=== PATIENT | female | born 1985 | race Caucasian/White ===

== ENCOUNTER 2018-09-26 06:48 | Day surgery (SDC) | payer MEDICAID ==
[~2018-09-26 06:48] MED LIST: Lactated Ringers 1,000 ML IV SCH; Lidocaine 1%/Sod Bicarbonate in NS 8.4% 1 ML Syringe IDERM PRN; Sodium Chloride 0.9% 10 ML Syringe FLUSH PRN
[2018-09-26] MEDS ORDERED: Rocuronium 50 MG/5 ML Vial ONE (07:19)
[2018-09-26] MEDS ORDERED: Ondansetron 4 MG/2 ML SDV ONE (07:19)
[2018-09-26] MEDS ORDERED: Propofol 200 MG/20 ML SDV ONE (07:19)
[2018-09-26] MEDS ORDERED: Lidocaine 1% 4 ML ONE (07:20)
[2018-09-26] MEDS ORDERED: fentaNYL 250 MCG/5 ML SDV ONE (07:20)
[2018-09-26] MEDS ORDERED: Ketorolac 30 MG/ML SDV ONE (07:20)
[2018-09-26] MEDS ORDERED: Midazolam 1 MG/ML 2 ML SDV ONE (07:20)
--- NOTE | 2018-09-26 07:34 | PCM.PREANE ---
Preanesthetic Assessment - Anesthesia/Transfusion/Family Hx Anesthesia History: Prior Anesthesia Without Reaction Family History of Anesthesia Reaction: No Transfusion History: No Prior Transfusion(s) - Review of Systems General: No Symptoms Pulmonary: No Symptoms Cardiovascular: Dyspnea on Exertion Gastrointestinal: No Symptoms Neurological: Seizure (age 11) Other: Reports: Depression - Physical Assessment NPO Status Date: 09/25/18 NPO Status Time: 00:00 Pulse: 83 O2 Sat by Pulse Oximetry: 98 Respiratory Rate: 17 Blood Pressure: 111/59 Temperature: 36.2 C Height: 1.57 m Weight: 81.2 kg ASA Class: 2 Mental Status: Alert & Oriented x3 Airway Class: Mallampati = 1 Dentition: Reports: [place](s), Broken Tooth/Teeth (top right) Thyro-Mental Finger Breadths: 3 Mouth Opening Finger Breadths: 3 ROM/Head Extension: Full Lungs: Clear to Auscultation, Normal Respiratory Effort Cardiovascular: Regular Rate, Regular Rhythm - Allergies Allergies/Adverse Reactions: Allergies Allergy/AdvReac Type Severity Reaction Status Date / Time erythromycin base Allergy Airway Verified 09/25/18 12:52 [From Pediazole] Tightness sulfisoxazole Allergy Airway Verified 09/25/18 12:52 [From Pediazole] Tightness ibuprofen [From Advil] AdvReac Dizziness Verified 09/26/18 07:40 - Blood Blood Available: Yes Product(s) Available: PRBC - Anesthesia Plan Pre-Op Medication Ordered: None - Acknowledgements Anesthesia Type Planned: General Anesthesia Pt an Appropriate Candidate for the Planned Anesthesia: Yes Alternatives and Risks of Anesthesia Discussed w Pt/Guardian: Yes Pt/Guardian Understands and Agrees with Anesthesia Plan: Yes PreAnesthesia Questionnaire HEENT History: Reports: Allergic Rhinitis, Impaired Vision, Sinusitis Cardiovascular History: Reports: None Respiratory History: Reports: Asthma, Bronchitis, Recurrent Genitourinary History: Reports: Other (See Below) Other Genitourinary History: std exposure FULL STACK DEVELOPER History: Reports: , Other (See Below) Other OB/BYN History: bacterial vaginosis, abnormal uterine bleeding, dyspareunia, ovarian cyst, pelvic pain, fibroid Musculoskeletal History: Reports: Other (See Below) Other Musculoskeletal History: right elbow epicondylitis Neurological History: Reports: Other (See Below) Other Neuro History: dizziness, arm neuropathy, seizure disorder Psychiatric History: Reports: Anxiety, Depression Endocrine/Metabolic History: Reports: None Hematologic History: Reports: None Immunologic History: Reports: None Oncologic (Cancer) History: Reports: None Dermatologic History: Reports: None - Past Surgical History Head Surgeries/Procedures: Reports: None Cardiovascular Surgical History: Reports: None Respiratory Surgical History: Reports: None GI Surgical History: Reports: Colonoscopy Endocrine Surgical History: Reports: None Neurological Surgical History: Reports: None Musculoskeletal Surgical History: Reports: None Oncologic Surgical History: Reports: None Dermatological Surgical History: Reports: None - SUBSTANCE USE Smoking Status *Q: Never Smoker Tobacco Use Within Last Twelve Months: No Second Hand Smoke Exposure: No Days Per Week of Alcohol Use: 1 Number of Drinks Per Day: 0 Total Drinks Per Week: 0 Recreational Drug Use History: No - HOME MEDS Home Medications: Home Meds FLUoxetine [PROzac] 60 mg PO DAILY 05/17/18 [History] Albuterol Sulfate [Proair Hfa] 1 - 2 puff INH Q4H PRN 09/25/18 [History] Biotin 2 mg PO DAILY 09/25/18 [History] Naproxen 500 mg PO Q4H PRN 09/25/18 [History] - CURRENT (IN HOUSE) MEDS Current Meds: Current Medications Lactated Ringer's (Ringers, Lactated) 1,000 mls @ 125 mls/hr IV ASDIRECTED MALINI Stop: 09/26/18 23:00 Lidocaine/Sodium Bicarbonate (Buffered Lidocaine 1% In Ns 8.4%) 0.25 ml IDERM ONETIME PRN PRN Reason: Prior to IV Start Stop: 09/26/18 18:00 Sodium Chloride (Saline Flush) 10 ml FLUSH ASDIRECTED PRN PRN Reason: Keep Vein Open Stop: 09/26/18 18:00 Discontinued Medications Fentanyl (Sublimaze) Confirm Administered Dose 250 mcg .ROUTE .STK-MED ONE Stop: 09/26/18 07:21 Lidocaine HCl (Xylocaine-Mpf 1%) Confirm Administered Dose 4 mls @ as directed .ROUTE .STK-MED ONE Stop: 09/26/18 07:21 Ketorolac Tromethamine (Toradol) Confirm Administered Dose 30 mg .ROUTE .STK- MED ONE Stop: 09/26/18 07:21 Midazolam HCl (Versed 1 Mg/Ml) Confirm Administered Dose 2 mg .ROUTE .STK-MED ONE Stop: 09/26/18 07:21 Ondansetron HCl (Zofran) Confirm Administered Dose 4 mg .ROUTE .STK-MED ONE Stop: 09/26/18 07:20 Propofol (Diprivan 20 Ml) Confirm Administered Dose 200 mg .ROUTE .STK-MED ONE Stop: 09/26/18 07:20 Rocuronium [place] (Zemuron) Confirm Administered Dose 50 mg .ROUTE .STK-MED ONE Stop: 09/26/18 07:20
[2018-09-26] MEDS ORDERED: Lidocaine 1% with EPINEPHrine 1:100,000 20 ML MDV ONE (07:36)
[2018-09-26] MEDS ORDERED: Bupivacaine 0.5% 30 ML SDV ONE (07:37)
[2018-09-26] MEDS ORDERED: Sodium Chloride 0.9% 50 ML SDV ONE (07:37)
[2018-09-26] MEDS ORDERED: ceFAZolin 1 GM Vial ONE (07:45)
[2018-09-26] MEDS ORDERED: Scopolamine 1.5 MG Transdermal Patch TOP ONE (08:00)
[2018-09-26] MEDS ORDERED: Dexamethasone 4 MG/ML SDV ONE (08:05)
[2018-09-26] MEDS ORDERED: ePHEDrine/Normal Saline 25 MG/5 ML Syringe ONE (08:26)
[2018-09-26] MEDS ORDERED: HYDROmorphone 0.5 MG/0.5 ML Syringe ONE ×2 (08:40)
[2018-09-26] MEDS ORDERED: Phenylephrine/Normal Saline 100 MCG/ML 10 ML Syringe ONE (08:55)
[2018-09-26] MEDS ORDERED: Lactated Ringers 1,000 ML ONE ×2 (09:13→09:14)
[2018-09-26] MEDS ORDERED: HYDROmorphone 0.5 MG/0.5 ML Syringe IVPUSH PRN (10:13)
[2018-09-26] MEDS ORDERED: fentaNYL 100 MCG/2 ML SDV IVPUSH PRN (10:13)
--- NOTE | 2018-09-26 10:15 | PCM.POSTAN ---
POST ANESTHESIA ASSESSMENT - MENTAL STATUS Mental Status: Alert, Oriented - VITAL SIGNS Pulse Rate: 81 SaO2: 94 Resp Rate: 11 Blood Pressure: 110/55 Temperature: 36.6 C - RESPIRATORY Respiratory Status: Respiratory Rate WNL, Airway Patent, O2 Saturation Stable, Supplemental Oxygen - CARDIOVASCULAR CV Status: Pulse Rate WNL, Blood Pressure Stable - GASTROINTESTINAL GI Status: No Symptoms - PAIN Pain Score: 0 - POST OP HYDRATION Hydration Status: Adequate & Stable - OBSERVATIONS Free Text/Narrative:: no anesthesia complications noted
--- NOTE | 2018-09-26 10:21 | PCM.OPNOTE ---
- General Post-Op/Procedure Note Date of Surgery/Procedure: 09/26/18 Operative Procedure(s): Laparoscopic-assisted vaginal hysterectomy, bilateral salpingectomy, transvaginal tape mid urethral sling Findings: Grossly normal-appearing uterus, bilateral floaters and tubes and bilateral ovaries. Normal-appearing cervix. Pre Op Diagnosis: Menorrhagia with irregular cycle, dysmenorrhea, female pelvic pain, uterine fibroid and stress urinary incontinence Post-Op Diagnosis: Same Anesthesia Technique: General ET Tube Primary Surgeon: Indra Smith Anesthesia Provider: Judson Bedolla Tufting Supervisor: Espinoza Rodriguez Tufting Supervisor: Lowell Ulrich Reason Tufting Supervisor Was Necessary: Patient safety and reduction of morbidity and mortality Role of Tufting Supervisor: Laparoscopic skills and retraction for visualization during procedure Pathology: Uterus, cervix and bilateral fallopian tubes Fluid Replacement, Intraop: 2,100 Output, Urine Amount: 150 EBL in mLs: 175 Complications: None Condition: Good Free Text/Narrative:: Length of procedure: 99 minutes The patient was seen in the preoperative holding area and risks, benefits, indications, and alternatives of the procedure were reviewed with the patient and she desired to proceed with a laparoscopic assisted vaginal hysterectomy, bilateral salpingectomy, possible unilateral or bilateral salpingo-oophorectomy , transvaginal mid-urethral sling and possible total abdominal hysterectomy. Consents were reviewed. The patient was taken back to the OR and given general anesthesia with an endotracheal tube which was placed without difficulty. She was placed in dorsal lithotomy position using Yellofin stirrups. She was prepped and draped in normal sterile fashion. A Connors catheter was placed without difficulty. Attention was then turned to her umbilicus where a previous laparoscopic scar was visualized. This was injected with 0.5% Marcaine and a 5 mm stab incision was made with a scalpel and a Veress needle was then inserted through the incision. The gas was turned on, with an opening pressure of 3 mmHg. Pneumoperitoneum was continued until 15 mmHg pressure. A 5 mm trocar was then inserted under direct visualization through the incision without difficulty. Attention was then turned to the patient's right lower quadrant where an avascular space approximately detention between the ASIS and the umbilicus was identified. Local anesthetic was injected and a 5 mm incision was made with a scalpel. A 5 mm trocar was then inserted under direct visualization of the laparoscope. Attention was then turned to the left lower quadrant, where again an avascular portion of the abdominal wall was identified approximately detention between the ASIS and the umbilicus. Local anesthetic was injected and a scalpel was used to make a 5 mm incision. A 5 mm trocar was inserted under direct visualization with the laparoscope. Attention was then turned to the pelvis where the uterus was visualized and noted be normal in appearance with normal appearing bilateral fallopian tubes and normal-appearing bilateral ovaries. The atraumatic grasper was then removed from the right lower trocar and a Enseal vessel sealing device was introduced and was used to transect the right fallopian tube and round ligament. The mesosalpinx connecting the right fallopian tube was transected from the ovary and underlying tissue. The right round ligament was then transected using the Enseal vessel sealing device. The utero-ovarian ligament was then transected using the Enseal vessel sealing device. The right side of the uterus and broad ligament were then transected using the Enseal vessel sealing device until the level of the uterovesical peritoneal reflection. This was repeated on the patient's left side. The fallopian tube was transected from the mesosalpinx using the Enseal vessel sealing device. The utero-ovarian ligament was then transected using Enseal vessel sealing device. The left round ligament was transected using Enseal vessel sealing device and the broad ligament was transected to the level of the uterovesical peritoneal reflection. The pelvis was then inspected for hemostasis at this time and hemostasis was noted. All instruments were removed from the abdomen. Attention was then turned to the patient's peritoneum where a weighted speculum was placed into the vagina and a [place] retractor was used to visualize the cervix. The cervix was grasped with a double-tooth tenaculum. The cervical reflection point was then injected circumferentially with 0.25% lidocaine with epinephrine. The cervix was then circumferentially incised with a scalpel. The bladder was then dissected off the pubovesical cervical fascia anteriorly with Metzenbaum scissors. The same procedure was performed posteriorly and the posterior cul-de-sac was entered sharply without difficulty using Metzenbaum scissors. At this point, an Enseal vessel sealing device was placed over the uterosacral ligaments on the patient's left side. These were cauterized and ligated with the device. This was repeated on the patient's right side. Hemostasis was assured. The cardinal ligaments were then clamped on both sides using the Enseal vessel sealing device, cauterized and transected with the device. The uterine artery on the patient's right side side and the remainder of the broad ligament were then serially clamped with the Enseal vessel sealing device, cauterized and transected with the device. Excellent hemostasis was noted. The cervix and uterus was able to be delivered at this time. The posterior vaginal cuff was closed with running locked sutures of 0 Monocryl. The vaginal cuff was then closed in a horizontal fashion using running locked sutures with 0 Monocryl suture. All instruments were removed from the vagina. Attention was then turned to the abdomen where a laparoscope was inserted and was used to check for hemostasis. Hemostasis was noted at this time. The case was complete at this time. The gas was then evacuated from the peritoneum and trocars removed. These were closed using 4-0 Monocryl suture and Dermabond. Attention was then turned to the patient's pelvis for the sling portion of the procedure. An Allis clamp was placed approximately 2 cm below the urethral opening. A second Allis clamp was placed 2 cm below the first Allis clamp. The vaginal mucosa was then injected with 0.25% lidocaine with epinephrine. A scalpel was used to make a midline incision through the vaginal mucosa. Villavicencio scissors were used to dissect the vaginal mucosa from the underlying tissue on the patient's right side. This was carried out to the pubic rami. This was repeated on the left side and completed without difficulty. Attention was then turned to the patient's mons and the skin was injected with 0.25% lidocaine with epinephrine and bilateral sides up proximally 2 cm from midline. A stab incision was made with a scalpel bilateral sides without complications. The urethral sling hook was then used on the patient's left side and placed through the stab incision and with a finger in the vagina behind the pubic rami, the tip of the hook was felt and then directed out through the midline vaginal incision. The transvaginal tape was attached to the hook and pulled through the incision. Attention was then turned to the patient's right side where, again, the transvaginal pigtail hook was placed through the stab incision and with a finger in the vagina was directed posterior to the lateral pubic rami and directed through the vaginal incision. The other end of the tape was attached to the hook and pulled through, making sure that the tape was flat on the patient's incision. A cystoscopy was performed to evaluate for injury to the bladder and no injury was noted on the bladder. There was reflux of urine from the bilateral ureters with cystoscopy. A Villavicencio scissors was placed to allow for a tension-free placement of the tape. The ends of the tape were then cut at the level of the skin on the patient on both sides at the stab incisions. Attention was then turned to the midline incision, which was closed using 3-0 Monocryl in a running fashion. The skin incisions were closed using Dermabond glue. The patient was awoken from general anesthesia and taken to the PACU for recovery in stable condition. She will be discharged to home once she is able to meet all postoperative milestones including tolerating small amount of oral intake and liquids, ambulate without difficulty, her pain controlled with oral medications and able to void without difficulty. She will follow-up in the clinic in 2 weeks or earlier as needed. Sponge, lap, needle, and instrument counts were correct x 2.
[2018-09-26 12:46] VITALS: BP 113/60
== END 2018-09-26 13:16 | disposition home or self-care (01) ==
LOC: JD.SDS 06:48
PROVIDERS: ATTEND Obstetrics & Gynecology
DX: N92.1 Excessive and frequent menstruation with irregular cycle (principal); N72 Inflammatory disease of cervix uteri; N80.0 Endometriosis of uterus; N39.3 Stress incontinence (female) (male); N83.202 Unspecified ovarian cyst, left side; N88.8 Other specified noninflammatory disorders of cervix uteri; J45.909 Unspecified asthma, uncomplicated; F32.9 Major depressive disorder, single episode, unspecified; G40.909 Epilepsy, unspecified, not intractable, without status epilepticus; Z88.1 Allergy status to other antibiotic agents; Z88.6 Allergy status to analgesic agent; Z88.2 Allergy status to sulfonamides; Z79.899 Other long term (current) drug therapy
CPT/HCPCS: 36415; 57288; 58552; 81025; 86850; 86900; 86901; A9270; C1771; J0690; J1100; J1170; J1885; J2001; J2250; J2370; J2405; J2704; J3010; J3490; J7050; J7120; 00944

== ENCOUNTER 2019-12-10 22:44 | Emergency (ER) | payer MEDICAID, OTHER, SELFPAY ==
[2019-12-10 22:53] VITALS: BP 134/74; PULSE 80
--- NOTE | 2019-12-10 23:18 | EDM.PDOC ---
ED HPI GENERAL MEDICAL PROBLEM - General Chief Complaint: Lower Extremity Injury/Pain Stated Complaint: LT ANKLE INJURY Time Seen by Provider: 12/10/19 22:54 Source of Information: Reports: Patient History Limitations: Reports: No Limitations - History of Present Illness INITIAL COMMENTS - FREE TEXT/NARRATIVE: Ms. Christie is a very pleasant 34-year-old woman who now presents to the ED after rolling her left foot inward around 16:30 this afternoon. She states that she was moving a refrigerator on a george, that it slipped, causing her to roll her ankle while stepping off of a curb. No prior left ankle injury, and the patient is otherwise uninjured. The patient states that she has applied a little ice to the ankle, but she has not taken any [id number]-svopkui medicines. She presents to the ED using her own crutches. Here in the ED, the patient is found to be hemodynamically stable, afebrile, saturating 97% on room air. Other than her ankle injury, the patient denies recent fever, chills, sore throat, ear pain, nasal or sinus congestion, cough, dyspnea, chest pain, palpitations, nausea, vomiting, constipation, diarrhea, abdominal pain, urinary symptoms, recent weight gain or weight loss, recent bloody bowel movements or black bowel movements, recent headaches, or rashes. The patient's PCP is Misty Shaw NP. Left Ankle Pain Score (Numeric/FACES): 8 - Related Data Allergies Allergy/AdvReac Type Severity Reaction Status Date / Time erythromycin base Allergy Airway Verified 09/26/18 08:02 [From Pediazole] Tightness sulfisoxazole Allergy Airway Verified 09/26/18 08:02 [From Pediazole] Tightness ibuprofen [From Advil] AdvReac Dizziness Verified 09/26/18 08:02 Home Meds: Home Meds FLUoxetine [PROzac] 60 mg PO DAILY 05/17/18 [History] Biotin 2 mg PO DAILY 09/25/18 [History] metroNIDAZOLE [Metronidazole] 1 dose TOP ASDIRECTED 01/03/19 [History] Past Medical History HEENT History: Reports: Allergic Rhinitis (untreated), Impaired Vision Respiratory History: Reports: Asthma (suspected, not tested) SCAN COORDINATOR History: Reports: Other (See Below) (Ovarian cysts) Psychiatric History: Reports: Anxiety, Depression Endocrine/Metabolic History: Reports: Obesity/BMI 30+ - Past Surgical History GI Surgical History: Reports: Colonoscopy (x 2) Female Surgical History: Reports: Hysterectomy (partial) Social & Family History - Family History Family Medical History: Noncontributory - Tobacco Use Smoking Status *Q: Never Smoker Second Hand Smoke Exposure: No - Caffeine Use Caffeine Use: Reports: Soda - Alcohol Use Alcohol Use History: Yes Alcohol Use Frequency: Socially - Recreational Drug Use Recreational Drug Use: No - Living Situation & Occupation Living situation: Reports: , with Family (3 daughters) Occupation: Unemployed Review of Systems - Review of Systems Review Of Systems: Comprehensive ROS is negative, except as noted in HPI. ED EXAM, GENERAL - Physical Exam Exam: See Below Exam Limited By: No Limitations General Appearance: Alert, WD/WN, No Apparent Distress Extremities: Other (Mild swelling without other visible abnormalities, such as erythema, ecchymosis, or abrasion, to the lateral malleolus, only. No other visible abnormalities, and the foot is in a normal anatomic position. There is tenderness to palpation of the anterior aspect of the lateral malleolus, otherwise, the patient's ankle is nontender to palpation of the posterior and anterior syndesmosis and the medial malleolus. Pain is induced in the ankle with PROM, however, the patient has good strength to both active dorsiflexion and plantarflexion. Neurovascular status of the left lower extremity is intact.) Course - Vital Signs Last Recorded V/S: Last Vital Signs Temp 36.8 C 12/10/19 22:50 Pulse 80 12/10/19 22:50 Resp 16 12/10/19 22:50 BP 134/74 12/10/19 22:50 Pulse Ox 97 12/10/19 22:50 - Orders/Labs/Meds Orders: Active Orders 24 hr Category Date Time Status Ankle Min 3V Lt [CR] Stat Exams 12/10/19 23:11 Taken DME for Discharge [COMM] Stat Oth 12/10/19 23:50 Ordered Meds: Medications Discontinued Medications Generic Name Dose Route Start Last Admin Trade Name Freq PRN Reason Stop Dose Admin Ibuprofen 600 mg 12/10/19 23:55 Motrin PO 12/10/19 23:56 ONETIME ONE - Re-Assessments/Exams Free Text/Narrative Re-Assessment/Exam: 12/10/19 23:18 As above, the patient rolled her left ankle earlier this afternoon. Clinically, I suspect a sprain. I have ordered x-rays to evaluate. The patient declined an offer for pain medication, however, I have asked the patient's nurse to apply an ice pack. 12/10/19 23:49 4-view radiographs of the left ankle appear to be grossly normal. No fractures or dislocations identified. The ankle mortise appears to be well preserved. Formal read per the Radiologist pending. Based on the above, I have ordered a stirrup splint. Departure - Departure Time of Disposition: 23:53 Disposition: Home, Self-Care 01 Condition: Good Clinical Impression: Sprain of left ankle - Discharge Information *PRESCRIPTION DRUG MONITORING PROGRAM REVIEWED*: Not Applicable *COPY OF PRESCRIPTION DRUG MONITORING REPORT IN PATIENT QUINN: Not Applicable Referrals: Misty Shaw NP [Primary Care Provider] - Filippo Conroy MD [Physician] - Forms: ED Department Discharge Additional Instructions: You were seen in the emergency room after injuring your left ankle when you rolled your foot inward this afternoon. Work-up in the ER included x-rays of your left ankle, which showed no abnormalities, such as a broken bone or dislocation. Based on your history, physical exam, and ER x-rays, you have most likely sprained your left ankle. We recommend that you ice and elevate your left ankle as much as possible over the next 2 days, to help minimize swelling. You may take [id number] ibuprofen, 3 tablets (600 mg) up to every 8 hours, with food, as needed for discomfort. You have been placed into a stirrup splint. We recommend that you put this on every morning, and remove it at bedtime. We recommend that you wear it for 7 to 10 days, after which we recommend that you begin walking without it, as tolerated. You may use your crutches, if desired, however, they are not necessary. Will likely continue to have some pain after you are out of the splint, however, if you continue to have pain after 2 weeks, we recommend that you follow-up with the Orthopedic Surgeon Dr. Filippo Conroy for further evaluation. If any other problems, please do not hesitate to return to the ER. Sepsis Event Note (ED) - Evaluation Sepsis Screening Result: No Definite Risk - Focused Exam Vital Signs: Vital Signs Temp Pulse Resp BP Pulse Ox 12/10/19 22:50 36.8 C 80 16 134/74 97 - My Orders Last 24 Hours: My Active Orders 12/10/19 23:11 Ankle Min 3V Lt [CR] Stat 12/10/19 23:50 DME for Discharge [COMM] Stat - Assessment/Plan Last 24 Hours: My Active Orders 12/10/19 23:11 Ankle Min 3V Lt [CR] Stat 12/10/19 23:50 DME for Discharge [COMM] Stat
[2019-12-10] MEDS ORDERED: Ibuprofen 600 MG Tab PO ONE (23:55)
--- NOTE | 2019-12-11 07:34 | CR ---
Left ankle: 4 views left ankle were obtained. Comparison: No prior left ankle study. Ankle mortise is symmetric. No acute fracture, dislocation or other bony abnormality is seen. Impression: 1. No abnormality is appreciated on left ankle exam. Diagnostic code #1 This report was dictated in MDT
== END 2019-12-11 00:14 | disposition home or self-care (01) ==
LOC: JD.ED 22:44
DX: S93.402A Sprain of unspecified ligament of left ankle, initial encounter (principal)
CPT/HCPCS: 29515; 73610; 99283; A9270; 29125; 99282

== ENCOUNTER 2021-04-15 19:16 | Emergency (ER) | payer MEDICAID ==
[2021-04-15] MEDS ORDERED: Ibuprofen 600 MG Tab PO ONE (20:04)
--- NOTE | 2021-04-15 20:05 | EDM.PDOC ---
ED HPI GENERAL MEDICAL PROBLEM - General Chief Complaint: Trauma Stated Complaint: RT FOOT INJURY/HIT BY A HORSE Time Seen by Provider: 04/15/21 19:36 Source of Information: Reports: Patient History Limitations: Reports: No Limitations - History of Present Illness INITIAL COMMENTS - FREE TEXT/NARRATIVE: Patient is a 35-year-old female who was kicked by her horse approximately 4 PM this afternoon. Patient has pain in her right middle leg secondary to this not a transamount of swelling. Patient was still able to ride a different horse home after the injury. She denies any other injuries has no other complaints denies any change in warmth color or sensation to her leg. She is taking nothing for current pain. Onset: Today (3) Duration: Hour(s): Location: Reports: Lower Extremity, Right Quality: Reports: Ache, Throbbing Severity: Moderate Improves with: Reports: Rest Worsens with: Reports: Movement Context: Reports: Trauma Associated Symptoms: Reports: No Other Symptoms Right Lower Leg Pain Score (Numeric/FACES): 7 - Related Data Allergies Allergy/AdvReac Type Severity Reaction Status Date / Time erythromycin base Allergy Airway Verified 04/15/21 19:32 [From Pediazole] Tightness sulfisoxazole Allergy Airway Verified 04/15/21 19:32 [From Pediazole] Tightness ibuprofen [From Advil] AdvReac Dizziness Verified 04/15/21 19:32 Home Meds: Home Meds FLUoxetine [PROzac] 60 mg PO DAILY 05/17/18 [History] Biotin 2 mg PO DAILY 09/25/18 [History] Past Medical History HEENT History: Reports: Allergic Rhinitis, Impaired Vision Cardiovascular History: Reports: None Respiratory History: Reports: Asthma Genitourinary History: Reports: Other (See Below) Other Genitourinary History: std exposure T[employer]PER SUPER[employer]OR History: Reports: Other (See Below) Other T[employer]PER SUPER[employer]OR History: bacterial vaginosis, abnormal uterine bleeding, dyspareunia, ovarian cyst, pelvic pain, fibroid Musculoskeletal History: Reports: Other (See Below) Other Musculoskeletal History: right elbow epicondylitis Neurological History: Reports: Seizure, Other (See Below) Other Neuro History: dizziness, arm neuropathy Psychiatric History: Reports: Anxiety, Depression Endocrine/Metabolic History: Reports: Obesity/BMI 30+ Hematologic History: Reports: None Immunologic History: Reports: None Oncologic (Cancer) History: Reports: None Dermatologic History: Reports: None - Past Surgical History GI Surgical History: Reports: Colonoscopy Female Surgical History: Reports: Hysterectomy Social & Family History - Family History Family Medical History: No Pertinent Family History - Tobacco Use Tobacco Use Status *Q: Never Tobacco User Second Hand Smoke Exposure: No - Caffeine Use Caffeine Use: Reports: Soda - Recreational Drug Use Recreational Drug Use: No - Living Situation & Occupation Living situation: Reports: , with Family (3 daughters) Occupation: Unemployed Review of Systems - Review of Systems Review Of Systems: Comprehensive ROS is negative, except as noted in HPI. Constitutional: Reports: No Symptoms Musculoskeletal: Reports: Leg Pain. Denies: Foot Pain, Joint Swelling Neurological: Reports: No Symptoms Psychiatric: Reports: No Symptoms ED EXAM, GENERAL - Physical Exam Exam: See Below Exam Limited By: No Limitations General Appearance: Alert, No Apparent Distress Neck: Normal Inspection, Supple Respiratory/Chest: No Respiratory Distress Peripheral Pulses: 4+: Posterior Tibial (R), Dorsalis Pedis (R) GI/Abdominal: No Distention Back Exam: Normal Inspection Extremities: Leg Pain, Limited Range of Motion. No: Slow Capillary Refill, Mottled, Pallor Neurological: Alert, Oriented Psychiatric: Normal Affect, Normal Mood Skin Exam: Warm, Dry, Other (Very small abrasion approximately 1 x 1 cm in size. This is on her anterior right leg.) Course - Vital Signs Text/Narrative:: X-ray shows old healed fracture of her right fibula. No new fractures appreciated by me. I have shown patient her x-ray findings. I will discharge her with a prescription for Edgeley and recommendation to continue using crutches as long as she is having pain. Elevation ice. Return to ER if symptoms are wo rse. Return if any change in warmth or color or sensation to her foot. Last Recorded V/S: Last Vital Signs Temp 97.5 F 04/15/21 19:29 Pulse 95 04/15/21 19:29 Resp 18 04/15/21 19:29 BP 120/89 04/15/21 19:29 Pulse Ox 99 04/15/21 19:29 - Orders/Labs/Meds Orders: Active Orders 24 hr Category Date Time Status Tibia Fibula Rt [CR] Stat Exams 04/15/21 20:01 Taken Meds: Medications Discontinued Medications Generic Name Dose Route Start Last Admin Trade Name Freq PRN Reason Stop Dose Admin Ibuprofen 600 mg 04/15/21 20:04 04/15/21 20:15 Ibuprofen 600 Mg Tab PO 04/15/21 20:05 600 mg ONETIME ONE Administration Departure - Departure Time of Disposition: 20:35 Disposition: Home, Self-Care 01 Condition: Good Clinical Impression: Contusion - Discharge Information *PRESCRIPTION DRUG MONITORING PROGRAM REVIEWED*: No Referrals: Barrera Hurd NP [Primary Care Provider] - Forms: ED Department Discharge Additional Instructions: Ovation ice as needed. Crutches as long as you are having pain. Return to ER if any change in warmth color or increased pain. Ibuprofen with meals. Edgeley if needed. Follow-up with PCP orthopedic provider if not improving. Sepsis Event Note (ED) - Evaluation Sepsis Screening Result: No Definite Risk - Focused Exam Vital Signs: Vital Signs Temp Pulse Resp BP Pulse Ox 04/15/21 19:29 97.5 F 95 18 120/89 99 - My Orders Last 24 Hours: My Active Orders 04/15/21 20:01 Tibia Fibula Rt [CR] Stat - Assessment/Plan Last 24 Hours: My Active Orders 04/15/21 20:01 Tibia Fibula Rt [CR] Stat
[2021-04-15 21:13] VITALS: BP 114/76; PULSE 87
--- NOTE | 2021-04-16 05:49 | CR ---
Right tibia and fibula: AP and lateral views of the right tibia and fibula were obtained. Comparison: No prior right tibia or fibula exam is available. Fracture is seen within the distal diaphysis of the fibula. I believe that there is bridging callus present and this is likely old. There is an acute fracture being seen within the distal tibial diaphysis which shows no displacement. Ankle mortise is symmetric. Small bony densities are seen off the medial malleolus which are most likely old if patient has no acute symptoms to this area. No additional bony abnormality is appreciated. Impression: 1. Old fracture within the distal fibular diaphysis. 2. Acute fracture within the distal tibial diaphysis which appears normal in alignment. 3. Other findings most likely incidental as described above. Diagnostic code #3
== END 2021-04-15 21:07 | disposition home or self-care (01) ==
LOC: JD.ED 19:16
DX: S80.11XA Contusion of right lower leg, initial encounter (principal); E66.9 Obesity, unspecified; Z88.1 Allergy status to other antibiotic agents; Z68.32 Body mass index [BMI] 32.0-32.9, adult; W55.12XA Struck by horse, initial encounter; Y92.009 Unspecified place in unspecified non-institutional (private) residence as the place of occurrence of the external cause
CPT/HCPCS: 73590; 99283; A9270

== ENCOUNTER 2021-08-04 19:47 | Emergency (ER) | payer MEDICAID, OTHER ==
[2021-08-04] MEDS ORDERED: Metoclopramide 10 MG/2 ML SDV IM ONE (20:25)
[2021-08-04] MEDS ORDERED: Ketorolac 15 MG/ML SDV IM ONE (20:25)
[2021-08-04] MEDS ORDERED: acetaZOLAMIDE 500 MG Vial IVPUSH ONE (21:15)
[2021-08-04] MEDS ORDERED: Timolol Maleate 0.5% Ophth Soln 5 ML Bottle EYEBOTH ONE (21:15)
[2021-08-04] MEDS ORDERED: Brimonidine 0.2% Ophth Soln 5 ML Bottle EYEBOTH STA (21:16)
[2021-08-04] MEDS ORDERED: Pilocarpine 2% Ophth Soln 15 ML Bottle EYEBOTH SCH (22:45)
[2021-08-04] MEDS ORDERED: Pilocarpine 4% Ophth Soln 15 ML Bot ONE (23:12)
[2021-08-04] MEDS ORDERED: Pilocarpine 4% Ophth Soln 15 ML Bot EYEBOTH ONE (23:36)
[2021-08-05] MEDS ORDERED: prednisoLONE Acetate 1% Ophth Susp 5 ML Bottle EYEBOTH STA ×2 (00:03→05:44)
[2021-08-05] MEDS ORDERED: Morphine 4 MG/ML Syringe IVPUSH ONE (00:25)
[2021-08-05] MEDS ORDERED: Ondansetron 4 MG/2 ML SDV IVPUSH ONE (00:25)
[2021-08-05] MEDS ORDERED: Pilocarpine 4% Ophth Soln 15 ML Bot EYELF ONE (00:55)
[2021-08-05] MEDS ORDERED: Sodium Chloride 0.9% 1,000 ML ONE (01:20)
[2021-08-05] MEDS ORDERED: Sodium Chloride 0.9% 1,000 ML IV ONE (01:30)
[2021-08-05] MEDS ORDERED: LORazepam 2 MG/ML SDV ONE (01:44)
[2021-08-05] MEDS ORDERED: Atropine 0.1 MG/ML 10 ML Syringe ONE (01:46)
[2021-08-05] MEDS ORDERED: fentaNYL 100 MCG/2 ML SDV IVPUSH ONE (02:12)
[2021-08-05] MEDS ORDERED: Brimonidine 0.2% Ophth Soln 5 ML Bottle EYEBOTH STA (05:44)
[2021-08-05 06:48] VITALS: BP 110/74; PULSE 65
== END 2021-08-05 06:30 | disposition home or self-care (01) ==
LOC: JD.ED 19:47
DX: H40.213 Acute angle-closure glaucoma, bilateral (principal); E66.9 Obesity, unspecified; Z68.32 Body mass index [BMI] 32.0-32.9, adult; Z88.8 Allergy status to other drugs, medicaments and biological substances; Z88.2 Allergy status to sulfonamides; Z79.899 Other long term (current) drug therapy
CPT/HCPCS: 36415; 70450; 80053; 82947; 83735; 84484; 85025; 85610; 85652; 93005; 96372; 96374; 96375; 99284; A9270; J1120; J1885; J2270; J2405; J2765; J3010; J7030

== ENCOUNTER 2023-12-19 07:12 | Day surgery (SDC) | payer MEDICAID ==
[~2023-12-19 07:12] MED LIST changes: -Lactated Ringers 1,000 ML IV SCH; -Lidocaine 1%/Sod Bicarbonate in NS 8.4% 1 ML Syringe IDERM PRN; +Sodium Chloride 0.9% 10 ML Syringe FLUSH SCH
[2023-12-19] MEDS: Lactated Ringers 1,000 ML IV SCH (08:00)
[2023-12-19] MEDS ORDERED: Propofol 200 MG/20 ML SDV ONE ×2 (08:35→08:57)
[2023-12-19] MEDS ORDERED: Lidocaine 2% 5 ML SDV ONE (08:41)
[2023-12-19] MEDS ORDERED: Ondansetron 4 MG/2 ML SDV IVPUSH PRN (09:17)
[2023-12-19] MEDS ORDERED: fentaNYL 100 MCG/2 ML SDV IVPUSH PRN (09:17)
[2023-12-19 10:13] VITALS: BP 100/69; PULSE 54
== END 2023-12-19 10:35 | disposition home or self-care (01) ==
LOC: JD.SDS 07:12
PROVIDERS: ATTEND Surgery
DX: K29.80 Duodenitis without bleeding (principal); K29.50 Unspecified chronic gastritis without bleeding; K20.90 Esophagitis, unspecified without bleeding; K62.5 Hemorrhage of anus and rectum; K64.9 Unspecified hemorrhoids; K31.89 Other diseases of stomach and duodenum; K59.00 Constipation, unspecified; J45.909 Unspecified asthma, uncomplicated; F32.A Depression, unspecified; E78.5 Hyperlipidemia, unspecified; G47.00 Insomnia, unspecified; E66.9 Obesity, unspecified; Z88.5 Allergy status to narcotic agent; Z88.8 Allergy status to other drugs, medicaments and biological substances; Z79.899 Other long term (current) drug therapy; Z68.34 Body mass index [BMI] 34.0-34.9, adult
CPT/HCPCS: 00813; J2704; J3490; J7120